=== PATIENT | male | born 1995 | race Caucasian/White ===

== ENCOUNTER 2020-11-19 12:12 | Inpatient (IN) ==
[2020-11-19] MEDS ORDERED: SODIUM CHLORIDE 0.9% 1,000 ML IV STA ×3 (12:27→13:51)
[2020-11-19] MEDS ORDERED: MORPHINE 4 MG/1 ML VIAL IV ONE ×2 (12:27→14:55)
[2020-11-19] MEDS ORDERED: ONDANSETRON 4 MG/2 ML VIAL IV ONE (12:27)
[2020-11-19 13:02] LABS: ABG Base Excess -13.6 MMOL/L (-2.5-2.5); ABG HCO3 13.5 MMOL/L (20-26); ABG Oxygen Saturation 47.9 % (95-100); ABG PCO2 44.7 MM HG (35-48)
[2020-11-19 13:04] LABS: ABG PH 7.162 (7.35-7.45); ABG PO2 29.4 MM HG (80-95)
[2020-11-19 13:43] LABS: Alanine Aminotransferase 60 U/L (16-61); Albumin 3.8 G/DL (3.4-5.0); Alkaline Phosphatase 113 U/L (45-117); Aspartate Amino Transferase 75 U/L (0-37); Blood Urea Nitrogen 9 MG/DL (7-18); Calcium 6.8 MG/DL (8.5-10.1); Carbon Dioxide 11 MMOL/L (21-32); Estimated Glom Filtration Rate 99 ML/MIN; Glucose 429 MG/DL (74-106); Osmolality,Calculated 256.3 MOS/KG (273-304); Potassium 4.5 MMOL/L (3.5-5.1); Total Protein 9.3 G/DL (5.0-7.5); Troponin I < 0.015 NG/ML (0.00-0.045)
[2020-11-19 13:50] LABS: Sodium 119 MMOL/L (136-145)
[2020-11-19 13:59] LABS: Basophils # 0.1 10*3/uL (0.0-0.2); Basophils % 0.4 % (0.0-0.8); Eosinophils % 0.1 % (0.00-10.9); Hematocrit 47.7 VOL% (42.0-52.0); Immature Granulocytes % 0.5 %; Immature Granulocytes Absolute 0.07 #; Lymphocytes # 1.3 10*3/uL (1.4-4.0); Lymphocytes % 9.6 % (21.2-54.2); Mean Corpuscular HGB Conc 35.8 GM/DL (32-36); Mean Corpuscular Volume 79.8 FL (87-102); Mean Platelet Volume 12.3 FL (9.6-12.0); Monocytes % 5.8 % (1.7-12.7); NRBC # 0.02 10*3/uL; Neutrophils % 83.6 % (38.7-73.9); Platelet Count 184 T/CUMM (130-400); Red Blood Count 5.98 MC/CUMM (3.8-5.5); Red Cell Distribution Width 15.1 % (9.3-17.3); White Blood Count 13.6 T/CUMM (4-12)
[2020-11-19 14:00] LABS: Hemoglobin 17.1 GM/DL (14.0-18.0)
[2020-11-19 14:13] LABS: Bilirubin,Urine Negative (Negative); Blood, Urine Moderate mg/dL (Negative); Glucose,Urine (UA) >=500 mg/dL (Negative); Ketones,Urine 80 mg/dL (Negative); Mucus,Urine Occasional /LPF (Occasional); Nitrite,Urine Negative (Negative); Protein,Urine 100 MG/DL; RBC,Urine 2 /HPF (0-4); Squamous Epithelial Cell,Urine Occasional /HPF (0-10); Urine Appearance CLEAR (Clear); Urine Color Yellow (Yellow); Urine Specific Gravity 1.032 (1.001-1.035); Urine Urobilinogen < 2.0 EU/DL (0.2-1.0)
[2020-11-19] MEDS: INSULIN REGULAR DRIP 100 ML IV PRN ×2 (14:58→23:40)
[2020-11-19 15:04] LABS: Anisocytosis Slight; Band Neutrophils 8 % (0-10); Lymphocytes 6 % (20-55); Microcytosis Slight; Platelet Estimate Normal; Segmented Neutrophils 81 % (50-85); Total Cells Counted 100
[2020-11-19] MEDS ORDERED: DEXT 5% NACL 0.45% KCL 20 MEQ 20 MEQ/1,000 ML BAG IV SCH ×2 (15:30)
[2020-11-19] MEDS ORDERED: ONDANSETRON 4 MG/2 ML VIAL IV PRN (15:33)
[2020-11-19] MEDS ORDERED: hydrALAZINE 20 MG/1 ML VIAL IV PRN (15:33)
[2020-11-19] MEDS ORDERED: ALBUTEROL 2.5 MG/3 ML NEB RESP TX PRN (15:33)
[2020-11-19] MEDS ORDERED: LACTATED RINGERS 1,000 ML IV ONE (15:38)
[2020-11-19] MEDS ORDERED: IBUPROFEN 400 MG TABLET PO PRN (16:13)
[2020-11-19] MEDS ORDERED: HYDROmorphone 2 MG/1 ML VIAL IV PRN (16:14)
[2020-11-19] MEDS ORDERED: SODIUM CHLORIDE 0.9% 100 ML IV ONE (16:25)
[2020-11-19] MEDS: cefTRIAXone 1,000 MG in SYRINGE 1 EACH IV SCH (16:34)
[2020-11-19] MEDS: FAMOTIDINE 20 MG/2 ML VIAL IV SCH (16:34)
[2020-11-19] MEDS: metroNIDAZOLE INJ 500 MG in PREMIX 1 EACH IV SCH ×2 (16:35→23:30)
[2020-11-19] MEDS: POTASSIUM CHLORIDE INJ 10 MEQ in DEXTROSE 5% LACTATED RINGERS 1,000 ML IV SCH ×2 (17:35→23:39)
[2020-11-19 18:32] LABS: Albumin 2.4 G/DL (3.4-5.0); Bilirubin,Total 0.9 MG/DL (0.2-1.0); Osmolality,Calculated 264.2 MOS/KG (273-304); Potassium 4.4 MMOL/L (3.5-5.1); Total Protein 6.5 G/DL (5.0-7.5)
[2020-11-19 18:43] LABS: Calcium 5.8 MG/DL (8.5-10.1)
[2020-11-19] MEDS ORDERED: POTASSIUM CHLORIDE INJ 10 MEQ in DEXTROSE 5% LACTATED RINGERS 1,000 ML IV SCH (20:29)
[2020-11-19] MEDS: HYDROmorphone 2 MG/1 ML VIAL IV PRN ×2 (21:05→23:35)
[2020-11-19] MEDS: IBUPROFEN 800 MG TABLET PO PRN (21:05)
[2020-11-19] MEDS: CALCIUM GLUCONATE 2,000 MG in SODIUM CHLORIDE 0.9% 100 ML IV SCH (21:05)
[2020-11-20 00:42] LABS: Albumin 2.7 G/DL (3.4-5.0); Bilirubin,Total 0.6 MG/DL (0.2-1.0); Calcium 7.4 MG/DL (8.5-10.1); Osmolality,Calculated 260.8 MOS/KG (273-304); Potassium 3.8 MMOL/L (3.5-5.1); Total Protein 6.8 G/DL (5.0-7.5)
[2020-11-20] MEDS: CALCIUM GLUCONATE 2,000 MG in SODIUM CHLORIDE 0.9% 100 ML IV SCH ×2 (00:42→03:10)
[2020-11-20] MEDS: HYDROmorphone 2 MG/1 ML VIAL IV PRN ×9 (03:10→22:13)
[2020-11-20 04:22] LABS: ABG Base Excess -6.2 MMOL/L (-2.5-2.5); ABG HCO3 19.4 MMOL/L (20-26); ABG Oxygen Saturation 95.1 % (95-100); ABG PCO2 34.1 MM HG (35-48); ABG PH 7.345 (7.35-7.45); ABG TCO2 15.7 MMOL/L (23-27)
[2020-11-20 04:43] LABS: Basophils # 0.1 10*3/uL (0.0-0.2); Basophils % 0.7 % (0.0-0.8); Eosinophils # 0.1 10*3/uL (0.0-0.87); Eosinophils % 0.7 % (0.00-10.9); Hematocrit 44.4 VOL% (42.0-52.0); Hemoglobin 15.4 GM/DL (14.0-18.0); Immature Granulocytes % 0.9 %; Lymphocytes # 1.2 10*3/uL (1.4-4.0); Mean Corpuscular HGB Conc 34.7 GM/DL (32-36); Mean Corpuscular Volume 80.6 FL (87-102); Mean Platelet Volume 11.2 FL (9.6-12.0); Monocytes % 7.5 % (1.7-12.7); Neutrophils % 79.2 % (38.7-73.9); Platelet Count 161 T/CUMM (130-400); Red Blood Count 5.51 MC/CUMM (3.8-5.5); Red Cell Distribution Width 14.8 % (9.3-17.3); White Blood Count 10.7 T/CUMM (4-12)
[2020-11-20] MEDS: metroNIDAZOLE INJ 500 MG in PREMIX 1 EACH IV SCH ×4 (05:00→21:57)
[2020-11-20] MEDS: FAMOTIDINE 20 MG/2 ML VIAL IV SCH ×2 (05:00→16:35)
[2020-11-20 05:13] LABS: Band Neutrophils 14 % (0-10); Eosinophils 1 % (0-10); Lymphocytes 9 % (20-55); Platelet Estimate Adequate; Segmented Neutrophils 71 % (50-85); Total Cells Counted 100
[2020-11-20 05:14] LABS: Microcytosis Slight
[2020-11-20 05:16] LABS: Albumin 2.5 G/DL (3.4-5.0); Bilirubin,Total 0.7 MG/DL (0.2-1.0); Calcium 8.9 MG/DL (8.5-10.1); Osmolality,Calculated 259.8 MOS/KG (273-304); Potassium 3.8 MMOL/L (3.5-5.1); Total Protein 6.5 G/DL (5.0-7.5)
[2020-11-20] MEDS ORDERED: MAGNESIUM SULF RIDER 4 GM in PREMIX 1 EACH IV PRN (05:33)
[2020-11-20] MEDS ORDERED: MAGNESIUM SULF RIDER 2 GM in PREMIX 1 EACH IV PRN (05:33)
[2020-11-20] MEDS: INSULIN REGULAR DRIP 100 ML IV PRN ×2 (09:39→16:39)
[2020-11-20] MEDS: POTASSIUM CHLORIDE INJ 10 MEQ in DEXTROSE 5% LACTATED RINGERS 1,000 ML IV SCH ×2 (10:27→15:17)
[2020-11-20 14:20] LABS: Risk Ratio 14.63; VLDL CHOLESTEROL 196.6 MG/DL
[2020-11-20] MEDS: METOPROLOL TARTRATE 50 MG TABLET PO SCH ×2 (14:32→21:57)
[2020-11-20] MEDS: cloNIDine 0.3 MG/24 HR PATCH TRANSDERM SCH (15:18)
[2020-11-20] MEDS: cefTRIAXone 1,000 MG in SYRINGE 1 EACH IV SCH (16:37)
[2020-11-20] MEDS ORDERED: NIFEdipine 10 MG CAPSULE PO PRN (17:01)
[2020-11-20] MEDS: NICOTINE 21 MG/24 HR PATCH TRANSDERM SCH (21:57)
[2020-11-21] MEDS: INSULIN REGULAR DRIP 100 ML IV PRN ×2 (00:57→17:59)
[2020-11-21] MEDS: POTASSIUM CHLORIDE INJ 10 MEQ in DEXTROSE 5% LACTATED RINGERS 1,000 ML IV SCH ×5 (00:57→23:02)
[2020-11-21] MEDS: HYDROmorphone 2 MG/1 ML VIAL IV PRN ×9 (01:00→23:10)
[2020-11-21] MEDS: IBUPROFEN 800 MG TABLET PO PRN (04:00)
[2020-11-21] MEDS: metroNIDAZOLE INJ 500 MG in PREMIX 1 EACH IV SCH ×4 (04:18→21:29)
[2020-11-21] MEDS: FAMOTIDINE 20 MG/2 ML VIAL IV SCH ×2 (04:18→15:09)
[2020-11-21 05:08] LABS: Basophils # 0.1 10*3/uL (0.0-0.2); Basophils % 0.6 % (0.0-0.8); Eosinophils # 0.1 10*3/uL (0.0-0.87); Eosinophils % 1.1 % (0.00-10.9); Hemoglobin 14.5 GM/DL (14.0-18.0); Immature Granulocytes % 0.9 %; Immature Granulocytes Absolute 0.11 #; Lymphocytes # 1.9 10*3/uL (1.4-4.0); Lymphocytes % 15.4 % (21.2-54.2); Mean Corpuscular HGB Conc 32.2 GM/DL (32-36); Mean Corpuscular Volume 85.9 FL (87-102); Mean Platelet Volume 11.3 FL (9.6-12.0); Monocytes % 6.6 % (1.7-12.7); Neutrophils % 75.4 % (38.7-73.9); Platelet Count 149 T/CUMM (130-400); Red Blood Count 5.24 MC/CUMM (3.8-5.5); Red Cell Distribution Width 15.6 % (9.3-17.3); White Blood Count 12.1 T/CUMM (4-12)
[2020-11-21 05:36] LABS: Band Neutrophils 3 % (0-10); Lymphocytes 15 % (20-55); Platelet Estimate Adequate; Segmented Neutrophils 77 % (50-85); Total Cells Counted 100
[2020-11-21 05:37] LABS: Albumin 2.2 G/DL (3.4-5.0); Bilirubin,Total 0.7 MG/DL (0.2-1.0); Calcium 8.4 MG/DL (8.5-10.1); Osmolality,Calculated 262.7 MOS/KG (273-304); Potassium 3.7 MMOL/L (3.5-5.1); Total Protein 6.4 G/DL (5.0-7.5)
[2020-11-21] MEDS: POTASSIUM CHLORIDE 20 MEQ TABLET PO PRN (09:47)
[2020-11-21] MEDS: METOPROLOL TARTRATE 50 MG TABLET PO SCH ×2 (09:47→21:28)
[2020-11-21] MEDS: NICOTINE 21 MG/24 HR PATCH TRANSDERM SCH (09:47)
[2020-11-21] MEDS: cefTRIAXone 1,000 MG in SYRINGE 1 EACH IV SCH (15:09)
[2020-11-22] MEDS: FAMOTIDINE 20 MG/2 ML VIAL IV SCH ×2 (04:55→15:53)
[2020-11-22] MEDS: metroNIDAZOLE INJ 500 MG in PREMIX 1 EACH IV SCH ×4 (05:15→21:46)
[2020-11-22 06:13] LABS: Basophils # 0.1 10*3/uL (0.0-0.2); Basophils % 0.5 % (0.0-0.8); Eosinophils # 0.1 10*3/uL (0.0-0.87); Eosinophils % 0.8 % (0.00-10.9); Hematocrit 35.4 VOL% (42.0-52.0); Immature Granulocytes % 1.8 %; Lymphocytes # 1.6 10*3/uL (1.4-4.0); Lymphocytes % 15.1 % (21.2-54.2); Mean Corpuscular HGB Conc 33.3 GM/DL (32-36); Mean Corpuscular Volume 81.8 FL (87-102); Mean Platelet Volume 10.4 FL (9.6-12.0); Monocytes % 9.1 % (1.7-12.7); Neutrophils % 72.7 % (38.7-73.9); Platelet Count 166 T/CUMM (130-400); Red Blood Count 4.33 MC/CUMM (3.8-5.5); Red Cell Distribution Width 15.2 % (9.3-17.3); White Blood Count 10.9 T/CUMM (4-12)
[2020-11-22 06:26] LABS: Hemoglobin 11.8 GM/DL (14.0-18.0)
[2020-11-22 06:31] LABS: INR 1.2; PT Patient Result 12.4 SECS (9.8-11.9)
[2020-11-22 06:35] LABS: Band Neutrophils 2 % (0-10); Eosinophils 2 % (0-10); Hypochromasia 1+; Lymphocytes 26 % (20-55); Microcytosis 1+; Platelet Estimate Adequate; Segmented Neutrophils 66 % (50-85); Total Cells Counted 100
[2020-11-22 06:41] LABS: Albumin 1.9 G/DL (3.4-5.0); Bilirubin,Total 0.5 MG/DL (0.2-1.0); Calcium 8.5 MG/DL (8.5-10.1); Osmolality,Calculated 263.5 MOS/KG (273-304); Potassium 3.3 MMOL/L (3.5-5.1); Total Protein 5.6 G/DL (6.4-8.2)
[2020-11-22] MEDS: POTASSIUM CHLORIDE INJ 10 MEQ in DEXTROSE 5% LACTATED RINGERS 1,000 ML IV SCH (07:04)
[2020-11-22] MEDS: HYDROmorphone 2 MG/1 ML VIAL IV PRN ×7 (07:13→22:20)
[2020-11-22] MEDS: POTASSIUM CHLORIDE 20 MEQ TABLET PO PRN ×3 (07:13→11:30)
[2020-11-22] MEDS: INSULIN REGULAR DRIP 100 ML IV PRN (07:15)
[2020-11-22] MEDS ORDERED: GLUCAGON 1 MG VIAL IM PRN (07:25)
[2020-11-22] MEDS ORDERED: DEXTROSE 50% 25 GM/50 ML VIAL IV PRN (07:25)
[2020-11-22] MEDS: INSULIN LISPRO 100 UNIT/ML SUBCUT SCH ×4 (07:32→21:46)
[2020-11-22] MEDS: INSULIN ASPART PROTAMINE/ASPART 70/30 100 UNIT/ML SUBCUT SCH ×2 (08:24→15:47)
[2020-11-22] MEDS ORDERED: LACTATED RINGERS 1,000 ML IV SCH (08:30)
[2020-11-22] MEDS: METOPROLOL TARTRATE 50 MG TABLET PO SCH ×2 (09:06→21:46)
[2020-11-22] MEDS: NICOTINE 21 MG/24 HR PATCH TRANSDERM SCH (09:06)
[2020-11-22] MEDS: LACTATED RINGERS 1,000 ML IV SCH ×2 (09:07→21:45)
[2020-11-22] MEDS: cefTRIAXone 1,000 MG in SYRINGE 1 EACH IV SCH (15:51)
[2020-11-23] MEDS: HYDROmorphone 2 MG/1 ML VIAL IV PRN ×10 (01:15→22:57)
[2020-11-23] MEDS: metroNIDAZOLE INJ 500 MG in PREMIX 1 EACH IV SCH ×4 (04:31→22:21)
[2020-11-23] MEDS: FAMOTIDINE 20 MG/2 ML VIAL IV SCH ×2 (04:32→16:32)
[2020-11-23 05:47] LABS: Basophils # 0.1 10*3/uL (0.0-0.2); Basophils % 0.7 % (0.0-0.8); Eosinophils # 0.1 10*3/uL (0.0-0.87); Eosinophils % 0.7 % (0.00-10.9); Hematocrit 36.7 VOL% (42.0-52.0); Immature Granulocytes % 5.1 %; Immature Granulocytes Absolute 0.53 #; Mean Corpuscular HGB Conc 32.7 GM/DL (32-36); Mean Corpuscular Volume 82.8 FL (87-102); Mean Platelet Volume 11.3 FL (9.6-12.0); Monocytes % 12.2 % (1.7-12.7); Neutrophils % 62.3 % (38.7-73.9); Platelet Count 144 T/CUMM (130-400); Red Blood Count 4.43 MC/CUMM (3.8-5.5); Red Cell Distribution Width 15.3 % (9.3-17.3); White Blood Count 10.4 T/CUMM (4-12)
[2020-11-23 06:05] LABS: Albumin 2.1 G/DL (3.4-5.0); Bilirubin,Total 0.5 MG/DL (0.2-1.0); Calcium 8.5 MG/DL (8.5-10.1); Osmolality,Calculated 272.1 MOS/KG (273-304); Potassium 3.2 MMOL/L (3.5-5.1); Total Protein 5.6 G/DL (6.4-8.2)
[2020-11-23 06:13] LABS: Eosinophils 2 % (0-10); Hypochromasia 1+; Lymphocytes 18 % (20-55); Microcytosis 1+; Platelet Estimate Adequate; Segmented Neutrophils 69 % (50-85); Total Cells Counted 100
[2020-11-23] MEDS: POTASSIUM CHLORIDE 20 MEQ TABLET PO PRN ×4 (07:56→14:30)
[2020-11-23] MEDS: INSULIN ASPART PROTAMINE/ASPART 70/30 100 UNIT/ML SUBCUT SCH ×2 (07:56→16:33)
[2020-11-23] MEDS: INSULIN LISPRO 100 UNIT/ML SUBCUT SCH ×4 (07:56→20:55)
[2020-11-23] MEDS: NICOTINE 21 MG/24 HR PATCH TRANSDERM SCH (08:00)
[2020-11-23] MEDS: METOPROLOL TARTRATE 50 MG TABLET PO SCH ×2 (08:00→20:26)
[2020-11-23] MEDS: LACTATED RINGERS 1,000 ML IV SCH ×3 (09:55→22:20)
[2020-11-23] MEDS: FENOFIBRATE 145 MG TABLET PO SCH (10:19)
[2020-11-23] MEDS: cefTRIAXone 1,000 MG in SYRINGE 1 EACH IV SCH (16:31)
[2020-11-24] MEDS: LACTATED RINGERS 1,000 ML IV SCH ×2 (00:13→10:03)
[2020-11-24] MEDS: HYDROmorphone 2 MG/1 ML VIAL IV PRN ×8 (01:33→22:35)
[2020-11-24] MEDS: metroNIDAZOLE INJ 500 MG in PREMIX 1 EACH IV SCH ×2 (04:11→09:09)
[2020-11-24] MEDS: FAMOTIDINE 20 MG/2 ML VIAL IV SCH ×2 (04:15→17:29)
[2020-11-24 05:54] LABS: Basophils # 0.1 10*3/uL (0.0-0.2); Basophils % 0.9 % (0.0-0.8); Eosinophils # 0.1 10*3/uL (0.0-0.87); Eosinophils % 0.6 % (0.00-10.9); Hematocrit 36.6 VOL% (42.0-52.0); Hemoglobin 11.8 GM/DL (14.0-18.0); Immature Granulocytes % 12.7 %; Immature Granulocytes Absolute 1.46 #; Lymphocytes # 2.1 10*3/uL (1.4-4.0); Lymphocytes % 18.5 % (21.2-54.2); Mean Corpuscular HGB Conc 32.2 GM/DL (32-36); Mean Platelet Volume 10.9 FL (9.6-12.0); Monocytes % 16.7 % (1.7-12.7); NRBC # 0.02 10*3/uL; Neutrophils % 50.6 % (38.7-73.9); Platelet Count 152 T/CUMM (130-400); Red Blood Count 4.41 MC/CUMM (3.8-5.5); Red Cell Distribution Width 14.7 % (9.3-17.3); White Blood Count 11.5 T/CUMM (4-12)
[2020-11-24 06:16] LABS: Band Neutrophils 2 % (0-10); Eosinophils 2 % (0-10); Lymphocytes 22 % (20-55); Platelet Estimate Adequate; Segmented Neutrophils 52 % (50-85); Total Cells Counted 100
[2020-11-24 06:17] LABS: Hypochromasia 1+; Microcytosis 1+
[2020-11-24 06:35] LABS: Bilirubin,Total 1.1 MG/DL (0.2-1.0); Calcium 8.2 MG/DL (8.5-10.1); Osmolality,Calculated 261.8 MOS/KG (273-304); Potassium 3.3 MMOL/L (3.5-5.1); Total Protein 5.8 G/DL (6.4-8.2)
[2020-11-24] MEDS: NICOTINE 21 MG/24 HR PATCH TRANSDERM SCH (08:28)
[2020-11-24] MEDS: METOPROLOL TARTRATE 50 MG TABLET PO SCH ×2 (08:28→20:21)
[2020-11-24] MEDS: INSULIN ASPART PROTAMINE/ASPART 70/30 100 UNIT/ML SUBCUT SCH ×2 (08:29→17:29)
[2020-11-24] MEDS: INSULIN LISPRO 100 UNIT/ML SUBCUT SCH ×4 (08:29→20:21)
[2020-11-24] MEDS: FENOFIBRATE 145 MG TABLET PO SCH (08:29)
[2020-11-24] MEDS: POTASSIUM CHLORIDE 20 MEQ TABLET PO PRN ×2 (14:35→17:28)
[2020-11-25] MEDS: HYDROmorphone 2 MG/1 ML VIAL IV PRN ×4 (00:40→08:52)
[2020-11-25] MEDS: FAMOTIDINE 20 MG/2 ML VIAL IV SCH ×2 (03:42→17:14)
[2020-11-25 04:16] LABS: Basophils # 0.1 10*3/uL (0.0-0.2); Basophils % 0.5 % (0.0-0.8); Eosinophils # 0.1 10*3/uL (0.0-0.87); Eosinophils % 0.8 % (0.00-10.9); Hematocrit 37.6 VOL% (42.0-52.0); Hemoglobin 12.6 GM/DL (14.0-18.0); Immature Granulocytes % 17.6 %; Immature Granulocytes Absolute 2.29 #; Lymphocytes # 2.6 10*3/uL (1.4-4.0); Lymphocytes % 19.6 % (21.2-54.2); Mean Corpuscular HGB Conc 33.5 GM/DL (32-36); Mean Corpuscular Volume 80.3 FL (87-102); Monocytes % 15.4 % (1.7-12.7); NRBC # 0.02 10*3/uL; Neutrophils % 46.1 % (38.7-73.9); Platelet Count 169 T/CUMM (130-400); Red Blood Count 4.68 MC/CUMM (3.8-5.5); Red Cell Distribution Width 14.4 % (9.3-17.3)
[2020-11-25 04:29] LABS: Calcium 8.4 MG/DL (8.5-10.1); Osmolality,Calculated 264.8 MOS/KG (273-304); Potassium 3.7 MMOL/L (3.5-5.1)
[2020-11-25 05:02] LABS: Band Neutrophils 4 % (0-10); Eosinophils 1 % (0-10); Lymphocytes 21 % (20-55); Metamyelocytes 4 %; Segmented Neutrophils 60 % (50-85); Total Cells Counted 100
[2020-11-25 05:03] LABS: Hypochromasia 1+; Microcytosis 1+; Platelet Estimate Adequate; Polychromasia Slight
[2020-11-25] MEDS ORDERED: MAGNESIUM SULF RIDER 4 GM in PREMIX 1 EACH IV ONE (08:45)
[2020-11-25] MEDS: NICOTINE 21 MG/24 HR PATCH TRANSDERM SCH (08:50)
[2020-11-25] MEDS: INSULIN ASPART PROTAMINE/ASPART 70/30 100 UNIT/ML SUBCUT SCH ×2 (08:51→17:14)
[2020-11-25] MEDS: INSULIN LISPRO 100 UNIT/ML SUBCUT SCH ×4 (08:51→20:28)
[2020-11-25] MEDS: METOPROLOL TARTRATE 50 MG TABLET PO SCH ×2 (10:29→20:27)
[2020-11-25] MEDS: FENOFIBRATE 145 MG TABLET PO SCH (10:30)
[2020-11-25] MEDS: PIPERACILLIN/TAZOBACTAM 3,375 MG in SODIUM CHLORIDE 0.9% 100 ML IV SCH ×2 (10:59→15:15)
[2020-11-25] MEDS ORDERED: HYDROmorphone 2 MG/1 ML VIAL IV PRN (13:00)
[2020-11-25] MEDS: oxyCODONE/ACETAMINOPHEN 5-325 MG TABLET PO PRN ×3 (13:15→21:10)
[2020-11-26] MEDS: PIPERACILLIN/TAZOBACTAM 3,375 MG in SODIUM CHLORIDE 0.9% 100 ML IV SCH ×4 (00:11→23:30)
[2020-11-26] MEDS: oxyCODONE/ACETAMINOPHEN 5-325 MG TABLET PO PRN ×6 (01:20→23:30)
[2020-11-26] MEDS: FAMOTIDINE 20 MG/2 ML VIAL IV SCH ×2 (04:39→17:15)
[2020-11-26 08:48] LABS: Basophils # 0.1 10*3/uL (0.0-0.2); Eosinophils # 0.1 10*3/uL (0.0-0.87); Eosinophils % 0.7 % (0.00-10.9); Hemoglobin 12.5 GM/DL (14.0-18.0); Immature Granulocytes Absolute 1.71 #; Lymphocytes # 2.1 10*3/uL (1.4-4.0); Mean Corpuscular HGB Conc 32.1 GM/DL (32-36); Mean Corpuscular Volume 82.3 FL (87-102); Mean Platelet Volume 10.7 FL (9.6-12.0); Neutrophils % 57.3 % (38.7-73.9); Platelet Count 184 T/CUMM (130-400); Red Blood Count 4.74 MC/CUMM (3.8-5.5); White Blood Count 12.2 T/CUMM (4-12)
[2020-11-26] MEDS ORDERED: GLUCAGON 1 MG VIAL IM PRN (09:12)
[2020-11-26] MEDS ORDERED: DEXTROSE 50% 25 GM/50 ML VIAL IV PRN (09:12)
[2020-11-26 09:23] LABS: Albumin 2.3 G/DL (3.4-5.0); Bilirubin,Total 0.7 MG/DL (0.2-1.0); Calcium 8.5 MG/DL (8.5-10.1); Osmolality,Calculated 263.8 MOS/KG (273-304); Potassium 3.9 MMOL/L (3.5-5.1); Total Protein 6.2 G/DL (6.4-8.2)
[2020-11-26] MEDS: FENOFIBRATE 145 MG TABLET PO SCH (09:36)
[2020-11-26] MEDS: METOPROLOL TARTRATE 50 MG TABLET PO SCH ×2 (09:36→20:41)
[2020-11-26] MEDS: DOCUSATE SODIUM 100 MG CAPSULE PO SCH (09:36)
[2020-11-26] MEDS: NICOTINE 21 MG/24 HR PATCH TRANSDERM SCH (09:38)
[2020-11-26] MEDS: INSULIN LISPRO 100 UNIT/ML SUBCUT SCH ×4 (09:40→20:45)
[2020-11-26 09:45] LABS: Band Neutrophils 3 % (0-10); Hypochromasia Slight; Lymphocytes 12 % (20-55); Platelet Estimate Adequate; Segmented Neutrophils 65 % (50-85); Total Cells Counted 100
[2020-11-26] MEDS: INSULIN ASPART PROTAMINE/ASPART 70/30 100 UNIT/ML SUBCUT SCH ×2 (11:32→17:04)
[2020-11-27] MEDS: oxyCODONE/ACETAMINOPHEN 5-325 MG TABLET PO PRN ×5 (03:37→22:30)
[2020-11-27] MEDS: FAMOTIDINE 20 MG/2 ML VIAL IV SCH ×2 (03:40→15:38)
[2020-11-27 05:56] LABS: Basophils # 0.1 10*3/uL (0.0-0.2); Basophils % 0.6 % (0.0-0.8); Eosinophils # 0.1 10*3/uL (0.0-0.87); Eosinophils % 0.7 % (0.00-10.9); Hematocrit 38.6 VOL% (42.0-52.0); Hemoglobin 12.6 GM/DL (14.0-18.0); Immature Granulocytes % 13.4 %; Immature Granulocytes Absolute 1.63 #; Lymphocytes # 2.2 10*3/uL (1.4-4.0); Mean Corpuscular HGB Conc 32.6 GM/DL (32-36); Mean Platelet Volume 11.4 FL (9.6-12.0); Monocytes % 8.9 % (1.7-12.7); Neutrophils % 58.4 % (38.7-73.9); Platelet Count 211 T/CUMM (130-400); Red Blood Count 4.71 MC/CUMM (3.8-5.5); Red Cell Distribution Width 13.7 % (9.3-17.3); White Blood Count 12.2 T/CUMM (4-12)
[2020-11-27 06:41] LABS: Albumin 2.4 G/DL (3.4-5.0); Bilirubin,Total 0.8 MG/DL (0.2-1.0); Calcium 8.5 MG/DL (8.5-10.1); Osmolality,Calculated 262.8 MOS/KG (273-304); Potassium 4.1 MMOL/L (3.5-5.1); Total Protein 6.5 G/DL (6.4-8.2)
[2020-11-27 07:03] LABS: Eosinophils 2 % (0-10); Lymphocytes 16 % (20-55); Metamyelocytes 3 %; Myelocytes 4 %; Polychromasia Slight; Segmented Neutrophils 73 % (50-85); Total Cells Counted 100
[2020-11-27 07:04] LABS: Hypochromasia 2+; Platelet Estimate Normal
[2020-11-27] MEDS: INSULIN LISPRO 100 UNIT/ML SUBCUT SCH ×4 (08:04→21:26)
[2020-11-27] MEDS: INSULIN ASPART PROTAMINE/ASPART 70/30 100 UNIT/ML SUBCUT SCH ×2 (08:05→15:35)
[2020-11-27] MEDS: METOPROLOL TARTRATE 50 MG TABLET PO SCH ×2 (09:06→21:27)
[2020-11-27] MEDS: DOCUSATE SODIUM 100 MG CAPSULE PO SCH (09:06)
[2020-11-27] MEDS: PIPERACILLIN/TAZOBACTAM 3,375 MG in SODIUM CHLORIDE 0.9% 100 ML IV SCH ×2 (09:07→15:39)
[2020-11-27] MEDS: NICOTINE 21 MG/24 HR PATCH TRANSDERM SCH (09:08)
[2020-11-27] MEDS: cloNIDine 0.3 MG/24 HR PATCH TRANSDERM SCH (09:08)
[2020-11-27] MEDS: FENOFIBRATE 145 MG TABLET PO SCH (10:47)
[2020-11-28] MEDS: PIPERACILLIN/TAZOBACTAM 3,375 MG in SODIUM CHLORIDE 0.9% 100 ML IV SCH ×2 (00:37→08:24)
[2020-11-28] MEDS: oxyCODONE/ACETAMINOPHEN 5-325 MG TABLET PO PRN ×2 (03:01→08:26)
[2020-11-28] MEDS: FAMOTIDINE 20 MG/2 ML VIAL IV SCH (05:04)
[2020-11-28 06:14] LABS: Basophils # 0.1 10*3/uL (0.0-0.2); Basophils % 0.8 % (0.0-0.8); Eosinophils # 0.1 10*3/uL (0.0-0.87); Hematocrit 36.7 VOL% (42.0-52.0); Hemoglobin 11.9 GM/DL (14.0-18.0); Lymphocytes # 2.8 10*3/uL (1.4-4.0); Lymphocytes % 22.9 % (21.2-54.2); Mean Corpuscular HGB Conc 32.4 GM/DL (32-36); Mean Corpuscular Volume 82.7 FL (87-102); Mean Platelet Volume 10.8 FL (9.6-12.0); Monocytes % 6.8 % (1.7-12.7); Neutrophils % 59.5 % (38.7-73.9); Platelet Count 251 T/CUMM (130-400); Red Blood Count 4.44 MC/CUMM (3.8-5.5); Red Cell Distribution Width 13.8 % (9.3-17.3); White Blood Count 12.3 T/CUMM (4-12)
[2020-11-28 06:44] LABS: Eosinophils 1 % (0-10); Lymphocytes 22 % (20-55); Platelet Estimate Adequate; Segmented Neutrophils 70 % (50-85); Total Cells Counted 100
[2020-11-28 06:45] LABS: Albumin 2.3 G/DL (3.4-5.0); Bilirubin,Total 0.9 MG/DL (0.2-1.0); Calcium 8.8 MG/DL (8.5-10.1); Hypochromasia Slight; Microcytosis Slight; Osmolality,Calculated 272.4 MOS/KG (273-304); Potassium 4.5 MMOL/L (3.5-5.1); Total Protein 6.5 G/DL (6.4-8.2)
[2020-11-28 08:07] VITALS: BP 128/112
[2020-11-28] MEDS: FENOFIBRATE 145 MG TABLET PO SCH (08:24)
[2020-11-28] MEDS: METOPROLOL TARTRATE 50 MG TABLET PO SCH (08:24)
[2020-11-28] MEDS: DOCUSATE SODIUM 100 MG CAPSULE PO SCH (08:24)
[2020-11-28] MEDS: NICOTINE 21 MG/24 HR PATCH TRANSDERM SCH (08:26)
[2020-11-28] MEDS: INSULIN ASPART PROTAMINE/ASPART 70/30 100 UNIT/ML SUBCUT SCH (08:28)
[2020-11-28] MEDS: INSULIN LISPRO 100 UNIT/ML SUBCUT SCH (08:28)
== END 2020-11-28 11:15 | disposition home or self-care (01) | DRG 438 ==
LOC: N.ED 12:12 → SUATTDRO 15:33 → N.EDINP 15:33 → N.ICU 15:59 → N.3E 11-22 16:02
PROVIDERS: ADMIT Internal Medicine; ATTEND Internal Medicine

== ENCOUNTER 2020-12-22 15:52 | Inpatient (IN) ==
[2020-12-22] MEDS ORDERED: SODIUM CHLORIDE 0.9% 1,000 ML IV STA (16:32)
[2020-12-22] MEDS ORDERED: MORPHINE 4 MG/1 ML VIAL IV ONE (16:32)
[2020-12-22] MEDS ORDERED: ONDANSETRON 4 MG/2 ML VIAL IV ONE (16:32)
[2020-12-22 17:01] LABS: ABG Base Excess 4.8 MMOL/L (-2.5-2.5); ABG HCO3 28.6 MMOL/L (20-26); ABG Oxygen Saturation 94.2 % (95-100); ABG PCO2 41.3 MM HG (35-48); ABG PH 7.456 (7.35-7.45); ABG PO2 64.1 MM HG (80-95); ABG TCO2 25.2 MMOL/L (23-27)
[2020-12-22 17:26] LABS: Basophils # 0.1 10*3/uL (0.0-0.2); Basophils % 1.1 % (0.0-0.8); Eosinophils # 0.2 10*3/uL (0.0-0.87); Eosinophils % 3.8 % (0.00-10.9); Hematocrit 41.6 VOL% (42.0-52.0); Hemoglobin 13.6 GM/DL (14.0-18.0); Immature Granulocytes % 0.2 %; Immature Granulocytes Absolute 0.01 #; Lymphocytes # 2.2 10*3/uL (1.4-4.0); Lymphocytes % 35.5 % (21.2-54.2); Mean Corpuscular HGB Conc 32.7 GM/DL (32-36); Mean Corpuscular Volume 80.5 FL (87-102); Mean Platelet Volume 11.7 FL (9.6-12.0); Monocytes % 6.7 % (1.7-12.7); Neutrophils % 52.7 % (38.7-73.9); Platelet Count 174 T/CUMM (130-400); Red Blood Count 5.17 MC/CUMM (3.8-5.5); Red Cell Distribution Width 14.2 % (9.3-17.3); White Blood Count 6.1 T/CUMM (4-12)
[2020-12-22 17:36] LABS: PT Patient Result 11.3 SECS (9.8-11.9)
[2020-12-22 17:47] LABS: Albumin 3.5 G/DL (3.4-5.0); Bilirubin,Total 0.6 MG/DL (0.2-1.0); Osmolality,Calculated 279.2 MOS/KG (273-304); Potassium 3.7 MMOL/L (3.5-5.1); Total Protein 8.1 G/DL (6.4-8.2)
[2020-12-22] MEDS ORDERED: INSULIN REGULAR 100 UNIT/ML IV STA (17:53)
[2020-12-22 18:21] LABS: Calcium 9.3 MG/DL (8.5-10.1)
[2020-12-22 18:48] LABS: Barbiturates Screen,Urine Negative (Negative); Benzodiazepines Screen,Urine Negative (Negative); Cannabinoid Screen,Urine Positive (Negative); Opiate Screen,Urine Negative (Negative); Phencyclidine Screen,Urine Negative (Negative)
[2020-12-22] MEDS ORDERED: DEXTROSE 50% 25 GM/50 ML VIAL IV PRN ×2 (19:41→19:56)
[2020-12-22] MEDS ORDERED: GLUCAGON 1 MG VIAL IM PRN ×2 (19:41→19:56)
[2020-12-22] MEDS ORDERED: ONDANSETRON 4 MG/2 ML VIAL IV PRN (19:45)
[2020-12-22 20:05] LABS: Risk Ratio 9.26; VLDL CHOLESTEROL 156.4 MG/DL
[2020-12-22] MEDS: SODIUM CHLORIDE 0.9% 1,000 ML IV SCH (21:10)
[2020-12-22] MEDS: PANTOPRAZOLE 40 MG VIAL IV SCH (21:20)
[2020-12-22 22:20] LABS: Hemoglobin 12.6 GM/DL (14.0-18.0)
[2020-12-22] MEDS: MORPHINE 4 MG/1 ML VIAL IV PRN (23:03)
[2020-12-22] MEDS: INSULIN REGULAR 100 UNIT/ML SUBCUT SCH (23:05)
[2020-12-23 01:20] LABS: Hematocrit 37.5 VOL% (42.0-52.0); Hemoglobin 12.2 GM/DL (14.0-18.0)
[2020-12-23] MEDS: SODIUM CHLORIDE 0.9% 1,000 ML IV SCH ×3 (04:29→17:59)
[2020-12-23] MEDS: MORPHINE 4 MG/1 ML VIAL IV PRN ×5 (04:32→23:05)
[2020-12-23 05:08] LABS: Basophils # 0.1 10*3/uL (0.0-0.2); Basophils % 1.3 % (0.0-0.8); Eosinophils # 0.3 10*3/uL (0.0-0.87); Eosinophils % 4.5 % (0.00-10.9); Hematocrit 40.3 VOL% (42.0-52.0); Hemoglobin 12.9 GM/DL (14.0-18.0); Immature Granulocytes % 0.2 %; Immature Granulocytes Absolute 0.01 #; Lymphocytes # 2.9 10*3/uL (1.4-4.0); Lymphocytes % 45.7 % (21.2-54.2); Mean Corpuscular Volume 80.8 FL (87-102); Monocytes % 8.1 % (1.7-12.7); Neutrophils % 40.2 % (38.7-73.9); Platelet Count 152 T/CUMM (130-400); Red Blood Count 4.99 MC/CUMM (3.8-5.5); Red Cell Distribution Width 14.5 % (9.3-17.3); White Blood Count 6.3 T/CUMM (4-12)
[2020-12-23 05:35] LABS: Eosinophils 6 % (0-10); Hypochromasia 1+; Lymphocytes 46 % (20-55); Segmented Neutrophils 43 % (50-85); Total Cells Counted 100
[2020-12-23 05:36] LABS: Atypical Lymphocytes Few; Microcytosis 1+; Platelet Estimate Adequate
[2020-12-23] MEDS: INSULIN REGULAR 100 UNIT/ML SUBCUT SCH ×4 (05:40→23:07)
[2020-12-23 05:44] LABS: Risk Ratio 8.17; VLDL CHOLESTEROL 81.4 MG/DL
[2020-12-23 05:45] LABS: Albumin 3.2 G/DL (3.4-5.0); Bilirubin,Total 0.7 MG/DL (0.2-1.0); Calcium 8.9 MG/DL (8.5-10.1); Potassium 3.8 MMOL/L (3.5-5.1); Total Protein 7.2 G/DL (6.4-8.2)
[2020-12-23] MEDS: NICOTINE 21 MG/24 HR PATCH TRANSDERM SCH (09:26)
[2020-12-23] MEDS: PANTOPRAZOLE 40 MG VIAL IV SCH ×2 (09:28→20:30)
[2020-12-23 14:10] LABS: Hematocrit 39.3 VOL% (42.0-52.0); Hemoglobin 12.3 GM/DL (14.0-18.0)
[2020-12-24] MEDS: SODIUM CHLORIDE 0.9% 1,000 ML IV SCH ×3 (04:18→12:06)
[2020-12-24] MEDS: INSULIN REGULAR 100 UNIT/ML SUBCUT SCH ×2 (05:47→12:33)
[2020-12-24] MEDS: MORPHINE 4 MG/1 ML VIAL IV PRN ×2 (05:49→10:26)
[2020-12-24 08:04] LABS: Basophils # 0.1 10*3/uL (0.0-0.2); Basophils % 0.9 % (0.0-0.8); Eosinophils # 0.2 10*3/uL (0.0-0.87); Eosinophils % 3.2 % (0.00-10.9); Hematocrit 37.8 VOL% (42.0-52.0); Hemoglobin 12.1 GM/DL (14.0-18.0); Immature Granulocytes % 0.4 %; Immature Granulocytes Absolute 0.02 #; Lymphocytes % 37.6 % (21.2-54.2); Mean Corpuscular Volume 80.4 FL (87-102); Mean Platelet Volume 10.7 FL (9.6-12.0); Monocytes % 6.2 % (1.7-12.7); Neutrophils % 51.7 % (38.7-73.9); Platelet Count 141 T/CUMM (130-400); Red Cell Distribution Width 13.8 % (9.3-17.3); White Blood Count 5.3 T/CUMM (4-12)
[2020-12-24 08:32] LABS: Albumin 3.2 G/DL (3.4-5.0); Bilirubin,Total 0.9 MG/DL (0.2-1.0); Calcium 8.7 MG/DL (8.5-10.1); Osmolality,Calculated 274.8 MOS/KG (273-304); Potassium 3.5 MMOL/L (3.5-5.1); Total Protein 7.1 G/DL (6.4-8.2)
[2020-12-24] MEDS: NICOTINE 21 MG/24 HR PATCH TRANSDERM SCH (09:10)
[2020-12-24] MEDS: PANTOPRAZOLE 40 MG VIAL IV SCH (09:11)
[2020-12-24 09:41] LABS: Hypochromasia 1+; Microcytosis 1+; Platelet Estimate Adequate
[2020-12-24 12:23] VITALS: BP 136/91
== END 2020-12-24 13:54 | disposition home or self-care (01) | DRG 439 ==
LOC: N.ED 15:52 → N.EDINP 19:41 → N.3E 20:22
PROVIDERS: ADMIT Emergency Medicine; ATTEND Emergency Medicine